=== PATIENT | male | born 2000 | race Caucasian/White ===

== ENCOUNTER 2024-12-04 10:34 | Day surgery (SDC) | payer OTHER ==
[~2024-12-04] VITALS: Ht 170.2 cm; Wt 99.5 kg
[~2024-12-04 10:34] MED LIST: ACETAMINOPHEN 1000MG/100ML IV BAG As Ordered ONE; LIDOCAINE 2% 100MG/5ML SDV (FOR ANES.) As Ordered ONE; NS (Normal Saline) 0.9% 1,000 ML IV SCH; ONDANSETRON 4MG 2ML VIAL As Ordered ONE; fentaNYL 100 MCG/2 ML INJECTION As Ordered ONE; propofoL 200 MG/20 ML VIAL As Ordered ONE
[2024-12-04] MEDS ORDERED: dexAMETHasone 10MG/1ML VIAL PRES.FREE PN ONE (12:25)
[2024-12-04] MEDS ORDERED: EPINEPHrine INJ 1 MG/ML 1ML AMP PN ONE (12:25)
[2024-12-04] MEDS ORDERED: ROPIvacaine 0.5% 30ML VIAL PN ONE (12:25)
[2024-12-04] MEDS ORDERED: LIDOCAINE 1% SDV 5ML VIAL PN ONE (12:25)
[2024-12-04] MEDS ORDERED: dexmedeTOMIDine (4MCG/ML)200MCG/50ML BTL (PRECEDEX) As Ordered ONE (12:56)
[2024-12-04] MEDS: MIDAZOLAM INJ 2MG/2ML VIAL IV PRN (13:03)
[2024-12-04] MEDS: ceFAZolin SOD 2 GM in IV 1 EA IV ONE (13:32)
[2024-12-04] MEDS ORDERED: TRANEXAMIC ACID 100 MG/ML 10ML VIAL As Ordered ONE (13:37)
[2024-12-04] MEDS: TRANEXAMIC ACID 100 MG/ML 10ML VIAL IV ONE (13:42)
[2024-12-04] MEDS: VANCOMYCIN 1000MG/20ML VIAL As Ordered ONE (15:05)
[2024-12-04] MEDS ORDERED: MEPERIDINE 25 MG/ML 1ML VIAL IV PRN (15:45)
[2024-12-04] MEDS ORDERED: ONDANSETRON 4MG 2ML VIAL IV PRN (15:45)
[2024-12-04] MEDS ORDERED: oxyCODONE 5MG TAB PO PRN (15:45)
[2024-12-04] MEDS ORDERED: fentaNYL 100 MCG/2 ML INJECTION IV PRN (15:45)
[2024-12-04 17:15] VITALS: BP 138/72; TEMP 97.4; O2SAT 97
== END 2024-12-04 17:27 | disposition home or self-care (01) ==
LOC: M SDC 10:34
PROVIDERS: ATTEND Orthopaedic Surgery
DX: M25.372 Other instability, left ankle (principal)
CPT/HCPCS: 27698; 76000; C1713; J0131; J0690; J1100; J2250; J2405; J3010; J3370